=== PATIENT | male | born 1990 | race Asian ===

== ENCOUNTER 2023-10-21 00:20 | Emergency (ER) | payer SELFPAY ==
[~2023-10-21] VITALS: Ht 188 cm; Wt 99.8 kg
[2023-10-21 00:21] VITALS: BP_SYST 159; BP_SYST 181; PULSE 74; RESP 20; TEMP 98; O2SAT 99
[2023-10-21 01:42] VITALS: BP_SYST 147; PULSE 66; RESP 20; TEMP 98.9; O2SAT 98
== END 2023-10-21 01:42 | disposition home or self-care (01) ==
LOC: SED 00:20
DX: I10 Essential (primary) hypertension (principal); Z79.899 Other long term (current) drug therapy
CPT/HCPCS: 99281